=== PATIENT | female | born 1990 | race Caucasian/White ===

== ENCOUNTER 2018-10-15 19:03 | Emergency (ER) | payer SELFPAY ==
[~2018-10-15] VITALS: Ht 157.5 cm; Wt 47.6 kg
[2018-10-15 19:36] VITALS: BP 128/74
[2018-10-15] MEDS ORDERED: LIDOCAINE 1% HCL (LOCAL ANESTH.) INJ 20ML MDV ID ONE (21:30)
[2018-10-15] MEDS ORDERED: LIDOCAINE 2%HCL (LOCAL ANESTH.) INJ 10ml MDV IJ ONE (21:30)
[2018-10-15] MEDS ORDERED: TETANUS-DIPTH-ACEL PERTUSSIS 0.5ML SYRG IM ONE (22:00)
[2018-10-15] MEDS ORDERED: BACITRACIN TOP OINT 1 UD PKG TOP ONE (22:00)
== END 2018-10-15 22:07 | disposition home or self-care (01) ==
LOC: ER 19:03
DX: S61.022A Laceration with foreign body of left thumb without damage to nail, initial encounter (principal); X58.XXXA Exposure to other specified factors, initial encounter; Y93.89 Activity, other specified; Y99.8 Other external cause status; Y92.89 Other specified places as the place of occurrence of the external cause
CPT/HCPCS: 12001; 73120; 81025; 90471; 90715; 99284; J2001